=== PATIENT | male | born 1995 | race Caucasian/White ===

== ENCOUNTER 2020-06-03 15:46 | Emergency (ER) | payer OTHER ==
[2020-06-03] MEDS ORDERED: Lidocaine 1% (PF) 30 ML VIAL ONE (15:56)
[2020-06-03] MEDS ORDERED: Boostrix 0.5 ML (Tdap) VIAL ONE (16:08)
== END 2020-06-03 17:05 | disposition home or self-care (01) ==
LOC: ERS 15:46
DX: S62.616A Displaced fracture of proximal phalanx of right little finger, initial encounter for closed fracture (principal); G40.B09 Juvenile myoclonic epilepsy, not intractable, without status epilepticus; Z79.899 Other long term (current) drug therapy; Z23 Encounter for immunization; V19.9XXA Pedal cyclist (driver) (passenger) injured in unspecified traffic accident, initial encounter
CPT/HCPCS: 26725; 90471; 90715; J2001